=== PATIENT | female | born 1965 | race Caucasian/White ===

== ENCOUNTER 2024-01-28 15:56 | Emergency (ER) | payer BC, OTHER ==
[~2024-01-28] VITALS: Ht 167.6 cm; Wt 64.8 kg
[~2024-01-28 15:56] MED LIST: LACTC PO
[2024-01-28 16:01] VITALS: TEMP 97.8
[2024-01-28 18:00] VITALS: BP 125/71; PULSE 74; RESP 20; O2SAT 96
== END 2024-01-28 18:03 | disposition home or self-care (01) ==
LOC: ER 15:56
DX: S00.83XA Contusion of other part of head, initial encounter (principal); S60.812A Abrasion of left wrist, initial encounter; Z90.49 Acquired absence of other specified parts of digestive tract; Z98.51 Tubal ligation status; Z88.2 Allergy status to sulfonamides; Z88.5 Allergy status to narcotic agent; Z79.899 Other long term (current) drug therapy; W18.39XA Other fall on same level, initial encounter; Y93.89 Activity, other specified; Y92.89 Other specified places as the place of occurrence of the external cause; Y99.8 Other external cause status
CPT/HCPCS: 29125; 70450; 72125; 73110; 99284